=== PATIENT | female | born 1960 | race Caucasian/White ===

== ENCOUNTER 2023-05-05 17:10 | Inpatient (IN) | payer MEDICARE ==
--- NOTE | 2023-05-05 17:43 | ED ---
Psych HPI - General Chief Complaint: Psychiatric Symptoms Stated Complaint: Anxiety Time Seen by Provider: 05/05/23 17:23 Source: patient, RN notes reviewed Mode of arrival: ambulatory - History of Present Illness Initial Comments: Patient is a 62-year-old female presented ER with chief complaint of anxiety and depression. Patient states that she has been having increased anxiety and depression and she feels like she cannot concentrate anymore. She is on multiple depression medication. She states she thinks they need adjustments and she feels like "inside of box looking out". Patient does report self harm by picking at her skin. Denies chest pain, shortness of breath, fevers, chills. She denies any hallucinations, suicidal ideation or homicidal ideation. - Related Data Home Medications Medication Instructions Recorded Confirmed ALPRAZolam [Xanax] 0.5 mg PO DAILY 05/05/23 05/05/23 ALPRAZolam [Xanax] 2 mg PO HS 05/05/23 05/05/23 Calcium Citrate/Vitamin D3 1 tab PO HS 05/05/23 05/05/23 [Citracal + D Maximum Caplet] Dextroamphetamine/Amphetamine 20 mg PO BID 05/05/23 05/05/23 [Adderall] Ipratropium-Albuterol Nebulize 3 ml INHALATION RT-Q6H PRN 05/05/23 05/05/23 [Duoneb 0.5 mg-3 mg/3 ml Soln] Levocetirizine Dihydrochloride 5 mg PO HS 05/05/23 05/05/23 [Xyzal] Levothyroxine Sodium [Synthroid] 100 mcg PO DAILY 05/05/23 05/05/23 Montelukast [Singulair] 10 mg PO HS 05/05/23 05/05/23 Multivitamins, Thera [Multivitamin 1 tab PO HS 05/05/23 05/05/23 (formulary)] Omeprazole [PriLOSEC] 40 mg PO HS 05/05/23 05/05/23 SUMAtriptan succinate [Imitrex] 50 mg PO BID PRN 05/05/23 05/05/23 Vitamin B Complex 1 cap PO HS 05/05/23 05/05/23 buPROPion XL [Wellbutrin XL] 300 mg PO DAILY 05/05/23 05/05/23 fluvoxaMINE MALEATE [Luvox] 200 mg PO HS 05/05/23 05/05/23 lamoTRIgine [LaMICtal] 200 mg PO HS 05/05/23 05/05/23 rOPINIRole HCL [Requip] 1 mg PO HS 05/05/23 05/05/23 Allergies Allergy/AdvReac Type Severity Reaction Status Date / Time latex Allergy Rash/Hives Verified 05/05/23 17:18 Penicillins Allergy Rash/Hives Verified 05/05/23 17:18 Review of Systems ROS Statement: Those systems with pertinent positive or pertinent negative responses have been documented in the HPI. ROS Other: All systems not noted in ROS Statement are negative. Past Medical History Past Medical History: Asthma, Cancer, COPD, GERD/Reflux, Hyperlipidemia, Thyroid Disorder Additional Past Medical History / Comment(s): thyroid ca Additional Past Surgical History / Comment(s): thyroidectomy Past Psychological History: Anxiety, Depression, Panic Disorder Smoking Status: Current every day smoker General Exam Limitations: no limitations General appearance: alert, in no apparent distress Head exam: Present: atraumatic, normocephalic, normal inspection Respiratory exam: Present: normal lung sounds bilaterally. Absent: respiratory distress, wheezes, rales, rhonchi, stridor Cardiovascular Exam: Present: regular rate, normal rhythm, normal heart sounds. Absent: systolic murmur, diastolic murmur, rubs, gallop, clicks Neurological exam: Present: alert, oriented X3, CN II-XII intact Psychiatric exam: Present: normal affect, normal mood, anxious Skin exam: Present: other (Multiple scars and excoriations on bilateral legs, face and upper extremities.) Course Vital Signs 05/05/23 17:14 Temperature 97 F L Pulse Rate 68 Respiratory 16 Rate Blood Pressure 117/80 O2 Sat by Pulse 98 Oximetry Medical Decision Making - Medical Decision Making Was pt. sent in by a medical professional or institution (, PA, TALENT ACQUISITION MANAGER, urgent c are, hospital, or skilled nursing...) When possible be specific @ -No Did you speak to anyone other than the patient for history (EMS, parent, family, police, friend...)? What history was obtained from this source @ -No Did you review nursing and triage notes (agree or disagree)? Why? @ -I reviewed and agree with nursing and triage notes Were old charts reviewed (outside hosp., previous admission, EMS record, old EKG, old radiological studies, urgent care reports/EKG's, skilled nursing records)? Report findings @ -No old charts were reviewed Differential Diagnosis (chest pain, altered mental status, abdominal pain women, abdominal pain men, vaginal bleeding, weakness, fever, dyspnea, syncope, headache, dizziness, GI bleed, back pain, seizure, CVA, palpatations, mental health, musculoskeletal)? @ -Differential Mental Health: Depression, anxiety, bipolar, psychosis, schizophrenia, borderline personality, situational depression, adjustment disorder, behavioral disorder, brain tumor, malingering, substance abuse, ence phalopathy, medication reaction, dementia, hypothyroidism, degenerative neurologic disorder, lupus.... This is not meant to be all-inclusive list EKG interpreted by me (3pts min.). @ -None X-rays interpreted by me (1pt min.). @ -None done CT interpreted by me (1pt min.). @ -None done U/S interpreted by me (1pt. min.). @ -None done What testing was considered but not performed or refused? (CT, X-rays, U/S, labs)? Why? @ -None What meds were considered but not given or refused? Why? @ -None Did you discuss the management of the patient with other professionals (professionals i.e. , PA, TALENT ACQUISITION MANAGER, lab, RT, psych nurse, nephrology social worker, hypertrichologist, teacher, human resource officer, corrections caseworker)? Give summary @ -Yes, I discussed this case with Geovanna MON[place]NA from [facility] who advised on admission. Was smoking cessation discussed for >3mins.? @ -No Was critical care preformed (if so, how long)? @ -No Were there social determinants of health that impacted care today? How? (Homelessness, low income, unemployed, alcoholism, drug addiction, transportation, low edu. Level, literacy, decrease access to med. care, detention, rehab)? @ -No Was there de-escalation of care discussed even if they declined (Discuss DNR or withdrawal of care, Hospice)? DNR status @ -No What co-morbidities impacted this encounter? (DM, HTN, Smoking, COPD, CAD, Cancer, CVA, ARF, Chemo, Hep., AIDS, mental health diagnosis, sleep apnea, morbid obesity)? @ -Anxiety and depression, thyroid disorder Was patient admitted / discharged? Hospital course, mention meds given and route, prescriptions, significant lab abnormalities, going to OR and other pertinent info. @ -Admitted. Patient is a 62-year-old female presented ER with chief complaint of anxiety. Vitals stable. Patient was medically cleared to speak with EPS. Geovanna from [facility] spoke with patient and advised on admission for further treatment and care. COVID negative. Patient will be admitted in stable condition for further care. Patient agreement with care plan. Undiagnosed new problem with uncertain prognosis? @ -No Drug Therapy requiring intensive monitoring for toxicity (Heparin, Nitro, Insulin, Cardizem)? @ -No Were any procedures done? @ -No Diagnosis/symptom? @ -Anxiety/depression Acute, or Chronic, or Acute on Chronic? @ -Acute on Chronic Uncomplicated (without systemic symptoms) or Complicated (systemic symptoms)? @ -uncomplicated Side effects of treatment? @ -No Exacerbation, Progression, or Severe Exacerbation? @ -No Poses a threat to life or bodily function? How? (Chest pain, [place], NE, pneumonia, PE, COPD, DKA, ARF, appy, cholecystitis, CVA, Diverticulitis, Homicidal, Suicidal, threat to staff... and all critical care pts) @ -No - Lab Data Lab Results 05/05/23 Range/Units 20:20 Coronavirus (PCR) Not Detected (Not Detectd) Disposition Clinical Impression: Depression, Anxiety Disposition: ADMITTED IP TO THIS [facility] Condition: Stable Is patient prescribed a controlled substance at d/c from ED?: No Referrals: Nonstaff,Physician [Primary Care Provider] - 1-2 days Time of Disposition: 19:56
[2023-05-05] MEDS ORDERED: MAG HYDROX/AL HYDROX/SIMETH 30 ML CUP PO PRN (21:52)
[2023-05-05] MEDS ORDERED: MAGNESIUM HYDROXIDE 2,400 MG/30 ML CUP PO PRN (21:52)
[2023-05-05] MEDS ORDERED: haloperidoL 5 MG TAB PO PRN (21:56)
[2023-05-05] MEDS ORDERED: LORazepam 2 MG/ML INJ IM PRN (21:56)
[2023-05-05] MEDS ORDERED: HALOPERIDOL LACTATE 5 MG/ML 1 ML VIAL IM SCH (22:00)
[2023-05-05] MEDS ORDERED: HALOPERIDOL LACTATE 5 MG/ML 1 ML VIAL IM PRN (22:19)
[2023-05-05] MEDS: LORazepam 1 MG TAB PO PRN (22:51)
[2023-05-05] MEDS: ACETAMINOPHEN TAB 325 MG TAB PO PRN (23:19)
[2023-05-06] MEDS ORDERED: ALBUTEROL INHALER 60 PUFF/8 GM INHALER (MHU) INHALATION PRN
[2023-05-06] MEDS: NICOTINE 14MG/24HR PATCH TRANSDERM SCH (08:54)
[2023-05-06] MEDS: MULTIVITAMINS, THERA 1 EACH TAB PO SCH ×2 (08:54→20:06)
[2023-05-06] MEDS: LEVOTHYROXINE 75 MCG TAB PO SCH (08:54)
[2023-05-06] MEDS: ACETAMINOPHEN TAB 325 MG TAB PO PRN ×2 (08:55→14:06)
[2023-05-06] MEDS: LORazepam 1 MG TAB PO PRN (08:55)
[2023-05-06] MEDS ORDERED: FLUTICASONE 50MCG/SPRAY NASAL 16GM EA NOSTRIL PRN (09:00)
[2023-05-06 10:23] LABS: Basophils # (A) 0.1 k/uL (0-0.2); Basophils % (A) 1 %; Eosinophils # (A) 0.2 k/uL (0-0.7); Eosinophils % (A) 2 %; HCT 36.8 % (34.0-46.0); Hypochromasia Moderate; Lymphocytes % (A) 17 %; MCH 28.4 pg (25.0-35.0); MCHC 32.6 g/dL (31.0-37.0); MCV 86.9 fL (80.0-100.0); Mean Platelet Volume 8.3; Monocytes # (A) 0.4 k/uL (0-1.0); Monocytes % (A) 6 %; Neutrophils # (A) 4.3 k/uL (1.3-7.7); Neutrophils % (A) 71 %; Platelet Count 242 k/uL (150-450); RBC 4.24 m/uL (3.80-5.40); RDW 15.6 % (11.5-15.5)
[2023-05-06 10:36] LABS: ALT 27 U/L (4-34); AST 28 U/L (14-36); African American GFR (CKD) 84 (>60 ml/min/1.73 sqM); Albumin 3.3 g/dL (3.5-5.0); Alkaline Phosphatase 132 U/L (38-126); Anion Gap 6 mmol/L; Blood Urea Nitrogen 15 mg/dL (7-17); Calcium 7.8 mg/dL (8.4-10.2); Carbon Dioxide 25 mmol/L (22-30); Chloride 111 mmol/L (98-107); Glucose 110 mg/dL (74-99); Non-African American GFR(CKD) 73 (>60 ml/min/1.73 sqM); Potassium 4.5 mmol/L (3.5-5.1); Sodium 142 mmol/L (137-145); Total Bilirubin 0.4 mg/dL (0.2-1.3); Total Protein 5.7 g/dL (6.3-8.2)
[2023-05-06 13:02] VITALS: BMI 23.3
[2023-05-06] MEDS: SERTRALINE 50 MG TAB PO SCH (14:05)
[2023-05-06] MEDS: clonazePAM 0.5 MG TAB PO SCH ×2 (14:06→20:05)
--- NOTE | 2023-05-06 14:28 | P.HP ---
Psychiatric H&P - . H&P Date: 05/06/23 History & Physical: Allergies Allergy/AdvReac Type Severity Reaction Status Date / Time latex Allergy Rash/Hives Verified 05/05/23 17:18 Penicillins Allergy Rash/Hives Verified 05/05/23 17:18 Vital Signs Temp 97.6 F 05/05/23 23:01 Pulse 85 05/05/23 23:01 Resp 18 05/05/23 23:01 BP 120/79 05/05/23 23:01 Pulse Ox 98 05/05/23 17:14 FiO2 Intake & Output 05/05/23 05/06/23 05/06/23 18:59 06:59 18:59 Weight 56.699 kg 56.019 kg 56.019 kg Laboratory Last Values WBC 6.0 k/uL (3.8-10.6) 05/06/23 09:40 RBC 4.24 m/uL (3.80-5.40) 05/06/23 09:40 Hgb 12.0 gm/dL (11.4-16.0) 05/06/23 09:40 Hct 36.8 % (34.0-46.0) 05/06/23 09:40 MCV 86.9 fL (80.0-100.0) 05/06/23 09:40 MCH 28.4 pg (25.0-35.0) 05/06/23 09:40 MCHC 32.6 g/dL (31.0-37.0) 05/06/23 09:40 RDW 15.6 % (11.5-15.5) H 05/06/23 09:40 Plt Count 242 k/uL (150-450) 05/06/23 09:40 MPV 8.3 05/06/23 09:40 Neutrophils % 71 % 05/06/23 09:40 Lymphocytes % 17 % 05/06/23 09:40 Monocytes % 6 % 05/06/23 09:40 Eosinophils % 2 % 05/06/23 09:40 Basophils % 1 % 05/06/23 09:40 Neutrophils # 4.3 k/uL (1.3-7.7) 05/06/23 09:40 Lymphocytes # 1.0 k/uL (1.0-4.8) 05/06/23 09:40 Monocytes # 0.4 k/uL (0-1.0) 05/06/23 09:40 Eosinophils # 0.2 k/uL (0-0.7) 05/06/23 09:40 Basophils # 0.1 k/uL (0-0.2) 05/06/23 09:40 Hypochromasia Moderate 05/06/23 09:40 Sodium 142 mmol/L (137-145) 05/06/23 09:40 Potassium 4.5 mmol/L (3.5-5.1) 05/06/23 09:40 Chloride 111 mmol/L (98-107) H 05/06/23 09:40 Carbon Dioxide 25 mmol/L (22-30) 05/06/23 09:40 Anion Gap 6 mmol/L 05/06/23 09:40 BUN 15 mg/dL (7-17) 05/06/23 09:40 Creatinine 0.87 mg/dL (0.52-1.04) 05/06/23 09:40 Est GFR (CKD-EPI)AfAm 84 (>60 ml/min/1.73 sqM) 05/06/23 09:40 Est GFR (CKD-EPI)NonAf 73 (>60 ml/min/1.73 sqM) 05/06/23 09:40 Glucose 110 mg/dL (74-99) H 05/06/23 09:40 Calcium 7.8 mg/dL (8.4-10.2) L 05/06/23 09:40 Total Bilirubin 0.4 mg/dL (0.2-1.3) 05/06/23 09:40 AST 28 U/L (14-36) 05/06/23 09:40 ALT 27 U/L (4-34) 05/06/23 09:40 Alkaline Phosphatase 132 U/L (38-126) H 05/06/23 09:40 Total Protein 5.7 g/dL (6.3-8.2) L 05/06/23 09:40 Albumin 3.3 g/dL (3.5-5.0) L 05/06/23 09:40 TSH 3.240 mIU/L (0.465-4.680) 05/06/23 09:40 Coronavirus (PCR) Not Detected (Not Detectd) 05/05/23 20:20 05/06/23 13:36 IDENTIFYING DATA: Patient is a 62-year-old female, currently lives alone in a trailer, she is single, she has no kids, she collects Social Security disability however also works part-time for an insurance company. HPI: Patient presented to the hospital yesterday morning of depression and anxiety and decreased concentration. Patient states that she needed an adjustment of her medications. She was also endorsing self harming and also picking at her skin. Patient was admitted voluntary to the mental health unit. She was agreeable retarded. She had a soft tone of voice, fairly directable. She states that she has been on psychiatric medications for over 40 years. She states that her medical doctor and also her psychiatric team are not on the scene page. Claims that she is not being helped with her medications. She states that she feels that she is "continuously sick" and states that she isn't having several health issues lately. States that she has been picking at her skin more, endorses it to be self-harm. States that she recently broke her arm. Claims that her anxiety is "through the roof" and states that she is fairly fearful of being on the unit and also endorsing depression and sadness. States that the depression is going on for about 2-3 years now. States that she is having poor sleep of about 2 hours a night, appetite and on and off. Claims t hat she is seeing things at home possibly however is not sure. Patient denies any current suicidal or homicidal ideations intent or plan. At this time patient denies any auditory or visual hallucinations. Patient denies any flight of ideas racing thoughts and increased in goal directed behavior. Patient admits to using cannabis regularly every 1-2 days. States that she smokes cigarettes. PAST PSYCHIATRIC HISTORY: Patient states that she has history of anxiety disorder and also depression. Patient is currently on several different psychiatric medications including Lamictal, Luvox, Xanax and Adderall, Wellbutrin. She states that she was psychiatrically admitted several years ago in [place]. Claims that she currently follows up with a physician's child care assistant at [facility]. Patient denies any history of suicide attempts in the past. Past Medical History: Asthma, Cancer, COPD, GERD/Reflux, Hyperlipidemia, Thyroid Disorder Additional Past Medical History / Comment(s): thyroid ca Additional Past Surgical History / Comment(s): thyroidectomy Past Psychological History: Anxiety, Depression, Panic Disorder Smoking Status: Current every day smoker ALLERGIES: as per EMR CHEMICAL DEPENDENCY HISTORY: as per HPI FAMILY PSYCHIATRIC/SUBSTANCE USE HISTORY: Claims that her father committed suicide SOCIAL HISTORY: Patient was born and raised in [place] and then moved to [place]. States that she complete high school and college degree. States that she does not have any legal history. She is single, lives alone in a trailer. She has no kids. Collects Social Security disability and also works part-time. MENTAL STATUS EXAM: General Appearance: Patient appears to be thin, short hair, dyed purple, stated age is alert, directable, and attempts to cooperate. Patient appears to have poor hygiene and grooming. Behavior: Patient is seated without any agitated behavior. Attempts to cooperate Speech: Patient's speech is fluent and nonpressured. Mood/Affect: Patient reports their mood is depressed and anxious, affect is congruent and constricted. Suicidality/Homicidality: Patient denies having any homicidal ideation intent or plan. Denies any suicidal ideations intent or plan Perceptions: Patient denies any visual hallucinations and denies any auditory hallucinations Though content/process: There is no evidence of any delusional thought content and thought process is linear and goal-directed. Focused on her symptoms Memory and concentration: AOX3, grossly intact for the purposes of this session. Can spell "WORLD" backwards Judgment and insight: Fair STRENGTHS/WEAKNESSES: strength is that patient is resilient. Weakness is that patient has poor judgment and is impulsive INTELLECT: average IMPRESSIONS: Major depressive disorder, without psychotic features Anxiety disorder unspecified, rule out PTSD versus generalized anxiety disorder cannabis use disorder Nicotine dependence PLAN: -Patient is admitted under voluntary status to MHU for stabilization of ps ychiatric symptoms and safety. Patient has signed adult voluntary form and medication consent and is placed in patient's chart. -Medications : Zoloft 50 mg daily for mood/anxiety, Remeron 15 mg daily at bedtime for mood/insomnia, continue with Lamictal 200 mg daily at bedtime for mood stabilization, discontinue Xanax and replace with Klonopin 0.5 mg twice a day for anxiety with plan to possibly taper down the patient tolerates it well. Hold off on Wellbutrin and stimulants -Ativan and Haldol PRN for agitation/aggression -Patient was counselled on substance abuse and desired to cut back on use -Patient was informed of the risks, benefits and side effects of the medication and patient verbally consented to taking the medications. Patient signed med consent form and was placed in chart. -Internal Medicine consult to perform medical evaluation and physical. -NRT - nicotine patch -SW on board for discharge planning. Encourage patient to participate in groups to work on coping skills. 05/06/23 14:21
[2023-05-06] MEDS: lamoTRIgine 100 MG TAB PO SCH (20:04)
[2023-05-06] MEDS: CALCIUM CARB-VIT D 500 MG-5 MCG TAB PO SCH (20:04)
[2023-05-06] MEDS: PANTOPRAZOLE 40 MG TABLET PO SCH (20:05)
[2023-05-06] MEDS: MONTELUKAST 10 MG TAB PO SCH (20:05)
[2023-05-06] MEDS: LORATADINE 10 MG TAB PO SCH (20:05)
[2023-05-06] MEDS ORDERED: MIRTAZAPINE 15 MG TAB PO SCH (21:00)
[2023-05-07] MEDS: NICOTINE 14MG/24HR PATCH TRANSDERM SCH (08:11)
[2023-05-07] MEDS: MULTIVITAMINS, THERA 1 EACH TAB PO SCH ×2 (08:11→20:38)
[2023-05-07] MEDS: clonazePAM 0.5 MG TAB PO SCH ×2 (08:11→20:38)
[2023-05-07] MEDS: SERTRALINE 50 MG TAB PO SCH (08:11)
[2023-05-07] MEDS: LEVOTHYROXINE 75 MCG TAB PO SCH (08:12)
[2023-05-07] MEDS: ACETAMINOPHEN TAB 325 MG TAB PO PRN ×3 (08:13→20:39)
--- NOTE | 2023-05-07 12:55 | P.PN ---
Progress Note - Text Progress Note Date: 05/07/23 Interval history: Patient was seen today for psychiatric follow-up. Patient was agreeable to sp parkk to sports book writer in the office. She appears to be in a brighter spirits today. She states on her mood and anxiety have been improving since yesterday. States that the Klonopin has been helping. She claims that she has been participating in group more. Feels less urge to pick at her skin today. She states that she had difficulty sleeping last night and was tossing and turning. States that her appetite is fair. At this time she is denying any suicidal homicidal ideations intent or plan. Denying any auditory or visual hallucinations. She has been taking her medications as prescribed. MENTAL STATUS EXAM: General Appearance: Patient appears to be thin, short hair, dyed purple, stated age is alert, directable, and attempts to cooperate. Patient appears to have improving hygiene and grooming. Behavior: Patient is seated without any agitated behavior. Attempts to cooperate Speech: Patient's speech is fluent and nonpressured. Mood/Affect: Patient reports their mood is depressed and anxious, improving, affect is congruent Suicidality/Homicidality: Patient denies having any homicidal ideation intent or plan. Denies any suicidal ideations intent or plan Perceptions: Patient denies any visual hallucinations and denies any auditory hallucinations Though content/process: There is no evidence of any delusional thought content and thought process is linear and goal-directed. less Focused on her symptoms Memory and concentration: AOX3, grossly intact for the purposes of this session Judgment and insight: Fair IMPRESSIONS: Major depressive disorder, without psychotic features Anxiety disorder unspecified, rule out PTSD versus generalized anxiety disorder cannabis use disorder Nicotine dependence PLAN: -Patient is admitted under voluntary status to MHU for stabilization of psychiatric symptoms and safety. Patient has signed adult voluntary form and medication consent and is placed in patient's chart. -Medications : Zoloft 50 mg daily for mood/anxiety, increase Remeron 30 mg daily at bedtime for mood/insomnia, added melatonin 6 mg qhs for sleep. continue with Lamictal 200 mg daily at bedtime for mood stabilization, continue with Klonopin 0.5 mg twice a day for anxiety with plan to possibly taper down the patient tolerates it well. Hold off on Wellbutrin and stimulants. -Ativan and Haldol PRN for agitation/aggression -NRT - nicotine patch -SW on board for discharge planning. Encourage patient to participate in groups to work on coping skills. likely discharge on if patient is improving.
[2023-05-07] MEDS: IBUPROFEN 600 MG TAB PO PRN (19:45)
[2023-05-07] MEDS: MONTELUKAST 10 MG TAB PO SCH (20:38)
[2023-05-07] MEDS: CALCIUM CARB-VIT D 500 MG-5 MCG TAB PO SCH (20:39)
[2023-05-07] MEDS: LORATADINE 10 MG TAB PO SCH (20:39)
[2023-05-07] MEDS: lamoTRIgine 100 MG TAB PO SCH (20:39)
[2023-05-07] MEDS: PANTOPRAZOLE 40 MG TABLET PO SCH (20:49)
[2023-05-07] MEDS ORDERED: MIRTAZAPINE 15 MG TAB PO SCH (21:00)
[2023-05-07] MEDS ORDERED: MELATONIN 3 MG TABLET PO SCH (21:00)
--- NOTE | 2023-05-08 05:16 | P.MDCNMH ---
History of Present Illness H&P Date: 05/07/23 Past Medical History Past Medical History: Asthma, Cancer, COPD, GERD/Reflux, Hyperlipidemia, Thyroid Disorder Additional Past Medical History / Comment(s): thyroid ca History of Any Multi-Drug Resistant Organisms: None Reported Additional Past Surgical History / Comment(s): thyroidectomy Past Anesthesia/Blood Transfusion Reactions: No Reported Reaction Past Psychological History: Anxiety, Depression, Panic Disorder Smoking Status: Current every day smoker Past Alcohol Use History: None Reported Past Drug Use History: Marijuana - Past Family History Father Family Medical History: Unable to Obtain Mother Family Medical History: Unable to Obtain Medications and Allergies Home Medications Medication Instructions Recorded Confirmed Type ALPRAZolam [Xanax] 0.5 mg PO DAILY 05/05/23 05/05/23 History ALPRAZolam [Xanax] 2 mg PO HS 05/05/23 05/05/23 History Calcium Citrate/Vitamin D3 1 tab PO HS 05/05/23 05/05/23 History [Citracal + D Maximum Caplet] Dextroamphetamine/Amphetamine 20 mg PO BID 05/05/23 05/05/23 History [Adderall] Ipratropium-Albuterol Nebulize 3 ml INHALATION RT-Q6H PRN 05/05/23 05/05/23 History [Duoneb 0.5 mg-3 mg/3 ml Soln] Levocetirizine Dihydrochloride 5 mg PO HS 05/05/23 05/05/23 History [Xyzal] Levothyroxine Sodium [Synthroid] 100 mcg PO DAILY 05/05/23 05/05/23 History Montelukast [Singulair] 10 mg PO HS 05/05/23 05/05/23 History Multivitamins, Thera [Multivitamin 1 tab PO HS 05/05/23 05/05/23 History (formulary)] Omeprazole [PriLOSEC] 40 mg PO HS 05/05/23 05/05/23 History SUMAtriptan succinate [Imitrex] 50 mg PO BID PRN 05/05/23 05/05/23 History Vitamin B Complex 1 cap PO HS 05/05/23 05/05/23 History buPROPion XL [Wellbutrin XL] 300 mg PO DAILY 05/05/23 05/05/23 History fluvoxaMINE MALEATE [Luvox] 200 mg PO HS 05/05/23 05/05/23 History lamoTRIgine [LaMICtal] 200 mg PO HS 05/05/23 05/05/23 History rOPINIRole HCL [Requip] 1 mg PO HS 05/05/23 05/05/23 History Allergies Allergy/AdvReac Type Severity Reaction Status Date / Time latex Allergy Rash/Hives Verified 05/05/23 17:18 Penicillins Allergy Rash/Hives Verified 05/05/23 17:18 Results CBC & Chem 7: 05/06/23 09:40 05/06/23 09:40
[2023-05-08 07:22] VITALS: BP 125/74; PULSE 76; RESP 16; TEMP 97.4
[2023-05-08] MEDS: SERTRALINE 50 MG TAB PO SCH (08:38)
[2023-05-08] MEDS: clonazePAM 0.5 MG TAB PO SCH (08:38)
[2023-05-08] MEDS: LEVOTHYROXINE 75 MCG TAB PO SCH (08:38)
[2023-05-08] MEDS: NICOTINE 14MG/24HR PATCH TRANSDERM SCH (08:47)
[2023-05-08] MEDS: IBUPROFEN 600 MG TAB PO PRN (09:13)
--- NOTE | 2023-05-08 11:16 | P.DS ---
Providers Date of admission: 05/05/23 21:38 Expected date of discharge: 05/08/23 Attending physician: Alirio Harper MD Consults: 05/05/23 21:52 Consult Physician Routine Consulting Provider: [facility] Consult Reason/Comments: H&P Do you want consulting provider notified?: Yes Primary care physician: Physician Nonstaff - Discharge Diagnosis(es) (1) Major depressive disorder without psychotic features Current Visit: Yes Status: Acute Priority: High (2) Anxiety disorder Current Visit: Yes Status: Acute Priority: High (3) Cannabis use disorder Current Visit: Yes Status: Acute Priority: Medium (4) Nicotine dependence Current Visit: Yes Status: Acute Priority: Low Hospital Course: Admission HPI: Admission note was completed by mortgage loan underwriter "patient is a 62-year-old female, currently lives alone in a trailer, she is single, she has no kids, she collects Social Security disability however also works part-time for an insurance company. Patient presented to the hospital yesterday morning of depression and anxiety and decreased concentration. Patient states that she needed an adjustment of her medications. She was also endorsing self harming and also picking at her skin. Patient was admitted voluntary to the mental health unit. She was agreeable retarded. She had a soft tone of voice, fairly directable. She states that she has been on psychiatric medications for over 40 years. She states that her medical doctor and also her psychiatric team are not on the scene page. Claims that she is not being helped with her medications. She states that she feels that she is "continuously sick" and states that she isn't having several health issues lately. States that she has been picking at her skin more, endorses it to be self-harm. States that she recently broke her arm. Claims that her anxiety is "through the roof" and states that she is fairly fearful of being on the unit and also endorsing depression and sadness. States that the depression is going on for about 2-3 years now. States that she is having poor sleep of about 2 hours a night, appetite and on and off. Claims that she is seeing things at home possibly however is not sure. Patient denies any current suicidal or homicidal ideations intent or plan. At this time patient denies any auditory or visual hallucinations. Patient denies any flight of ideas racing thoughts and increased in goal directed behavior. Patient admits to using cannabis regularly every 1-2 days. States that she smokes cigarettes." Hospital course: Upon admission to the unit patient was directable and agreeable to commence treatment and signed adult voluntary form. patient got along well with other patients on the unit and followed unit protocol. Patient was compliant with the medications and denied any side effects throughout hospital course. Patient was started on Zoloft 50 mg daily for mood/anxiety, Xanax and Wellbutrin, Luvox and patient's Adderall were all discontinued. Patient was replaced on a longer acting lower dose of benzodiazepine Klonopin 0.5 mg twice daily for anxiety. Patient was also started on Remeron 30 mg nightly for mood/insomnia, melatonin 6 mg nightly for sleep, Requip 1 mg nightly for restless leg symptoms, Lamictal was continued at her home dose of 200 mg nightly for mood stabilization. patient spoke of her stressors and engaged in therapy both group and individual. Patient was also seen by medical team for history and physical exam. Throughout the course of the hospitalization patient gradually improved with regards to mood, anxiety, skin picking, suicidal thoughts, sleep and became more future oriented with improved insight and judgment. On the day of discharge patient denied any suicidal or homicidal ideations intent or plan denied any auditory or visual hallucinations. Patient endorsed wanting to live for her health and her future. The patient denied any access to guns or weapons. Patient denied any paranoia and did not endorse any delusions. Patient does have a significant history of substance abuse and was counseled on abstaining from all substances including alcohol and marijuana. Patient elected to do outpatient substance use treatment program through their outpatient provider.. Patient was also counseled on the medications and need for regular compliance and was encouraged to follow- up with their outpatient appointment for mental health and also for primary care. Prior to discharge a family meeting will be arranged by director of social work to answer any questions and ensure safety upon discharge incuding making sure that guns/weapons are either removed from the home or locked away. Mental status exam: General Appearance: Patient appears to be thin, has short hair, dyed hair, stated age is alert, pleasant, and cooperative. Patient is in no acute distress and has improved hygiene and grooming Behavior: Patient is calmly seated without any agitated behavior. Speech: Patient's speech is fluent and nonpressured. Mood/Affect: Patient reports their mood is "better", affect is congruent and euthymic. Suicidality/Homicidality: Patient denies having any suicidal or homicidal ideation intent or plan. Perceptions: Patient denies any auditory or visual hallucinations. Though content/process: There is no evidence of any delusional thought content and thought process is linear and goal-directed. More future oriented Memory and concentration: AOX3, grossly intact for the purposes of this session. Can spell "WORLD" backwards correctly. Judgment and insight: improved with guarded prognosis Impression: Major depressive disorder without psychotic features Anxiety disorder unspecified Cannabis use disorder Nicotine dependence Plan: -Continue with discharge today as patient has improved and stabilized psych iatrically and is not currently an imminent threat to themself and/or others. -Continue medications: Zoloft 50 mg daily for mood/anxiety, Remeron 30 mg nightly for mood/insomnia, melatonin 6 mg nightly for sleep, Lamictal 200 mg nightly for mood stabilization, Klonopin 0.5 mg twice daily as needed for anxiety, will be prescribed a 10-day supply of this. Discontinued Wellbutrin, Luvox, Adderall and Xanax. -Patient was counseled on the need for medication compliance and appropriate follow-up at mental health and also primary care for medical issues. Patient verbalized understanding and agreed. -Social work to arrange for and conduct family meeting to ensure safety upon discharge and answer any questions/concerns and also to ensure safe home environment that guns/weapons are either removed from the home or locked away. Social work also to arrange for patients follow up appointments with [facility] for psychiatric care along with follow up with primary care provider. -Patient counseled on abstaining from recreational drugs and marijuana and alcohol. Was informed/educated on the adverse effects on their physical and mental health. Patient verbally agreed and understood. -Patient was instructed to return to the hospital or seek immediate medical care if their psychiatric or medical symptoms do worsen or reoccur. Allergies Allergy/AdvReac Type Severity Reaction Status Date / Time latex Allergy Rash/Hives Verified 05/05/23 17:18 Penicillins Allergy Rash/Hives Verified 05/05/23 17:18 Laboratory Results WBC 6.0 k/uL (3.8-10.6) 05/06/23 09:40 RBC 4.24 m/uL (3.80-5.40) 05/06/23 09:40 Hgb 12.0 gm/dL (11.4-16.0) 05/06/23 09:40 Hct 36.8 % (34.0-46.0) 05/06/23 09:40 MCV 86.9 fL (80.0-100.0) 05/06/23 09:40 MCH 28.4 pg (25.0-35.0) 05/06/23 09:40 MCHC 32.6 g/dL (31.0-37.0) 05/06/23 09:40 RDW 15.6 % (11.5-15.5) H 05/06/23 09:40 Plt Count 242 k/uL (150-450) 05/06/23 09:40 MPV 8.3 05/06/23 09:40 Neutrophils % 71 % 05/06/23 09:40 Lymphocytes % 17 % 05/06/23 09:40 Monocytes % 6 % 05/06/23 09:40 Eosinophils % 2 % 05/06/23 09:40 Basophils % 1 % 05/06/23 09:40 Neutrophils # 4.3 k/uL (1.3-7.7) 05/06/23 09:40 Lymphocytes # 1.0 k/uL (1.0-4.8) 05/06/23 09:40 Monocytes # 0.4 k/uL (0-1.0) 05/06/23 09:40 Eosinophils # 0.2 k/uL (0-0.7) 05/06/23 09:40 Basophils # 0.1 k/uL (0-0.2) 05/06/23 09:40 Hypochromasia Moderate 05/06/23 09:40 Sodium 142 mmol/L (137-145) 05/06/23 09:40 Potassium 4.5 mmol/L (3.5-5.1) 05/06/23 09:40 Chloride 111 mmol/L (98-107) H 05/06/23 09:40 Carbon Dioxide 25 mmol/L (22-30) 05/06/23 09:40 Anion Gap 6 mmol/L 05/06/23 09:40 BUN 15 mg/dL (7-17) 05/06/23 09:40 Creatinine 0.87 mg/dL (0.52-1.04) 05/06/23 09:40 Est GFR (CKD-EPI)AfAm 84 (>60 ml/min/1.73 sqM) 05/06/23 09:40 Est GFR (CKD-EPI)NonAf 73 (>60 ml/min/1.73 sqM) 05/06/23 09:40 Glucose 110 mg/dL (74-99) H 05/06/23 09:[address] Glu mg/dL 100 mg/dL 05/06/23 09:40 Hemoglobin A1c 5.1 % (<=6.0) 05/06/23 09:40 Calcium 7.8 mg/dL (8.4-10.2) L 05/06/23 09:40 Total Bilirubin 0.4 mg/dL (0.2-1.3) 05/06/23 09:40 AST 28 U/L (14-36) 05/06/23 09:40 ALT 27 U/L (4-34) 05/06/23 09:40 Alkaline Phosphatase 132 U/L (38-126) H 05/06/23 09:40 Total Protein 5.7 g/dL (6.3-8.2) L 05/06/23 09:40 Albumin 3.3 g/dL (3.5-5.0) L 05/06/23 09:40 TSH 3.240 mIU/L (0.465-4.680) 05/06/23 09:40 Lamotrigine 2.4 ug/mL (2.0-15.0) 05/06/23 09:40 Coronavirus (PCR) Not Detected (Not Detectd) 05/05/23 20:20 Vital Signs Temp 97.4 F L 05/08/23 06:48 Pulse 76 05/08/23 06:48 Resp 16 05/08/23 06:48 BP 125/74 05/08/23 06:48 Pulse Ox 98 05/05/23 17:14 FiO2 Patient Condition at Discharge: Stable Plan - Discharge Summary Discharge Rx Participant: Yes New Discharge Prescriptions: New Fluticasone Nasal [place] [Flonase Nasal [place]] 2 spray EA NOSTRIL DAILY PRN ml PRN Reason: Allergy Symptoms Nicotine 14Mg/24Hr Patch [Habitrol] 1 patch TRANSDERM DAILY 14 Days #14 patch clonazePAM [KlonoPIN] 0.5 mg PO BID PRN 10 Days #20 tab PRN Reason: Anxiety Mirtazapine [Remeron] 30 mg PO HS 30 Days #60 tab Melatonin 6 mg PO HS 30 Days #60 tab Ibuprofen [Motrin] 600 mg PO Q6HR PRN tab PRN Reason: Moderate Pain (Scale 4 To 6) Sertraline [Zoloft] 50 mg PO DAILY 30 Days #30 tab Continue Levothyroxine Sodium [Synthroid] 100 mcg PO DAILY Vitamin B Complex 1 cap PO HS Multivitamins, Thera [Multivitamin (formulary)] 1 tab PO HS lamoTRIgine [LaMICtal] 200 mg PO HS 30 Days #30 tab rOPINIRole HCL [Requip] 1 mg PO HS 30 Days #60 tab Omeprazole [PriLOSEC] 40 mg PO HS SUMAtriptan succinate [Imitrex] 50 mg PO BID PRN PRN Reason: Migraine Headache Montelukast [Singulair] 10 mg PO HS Levocetirizine Dihydrochloride [Xyzal] 5 mg PO HS Calcium Citrate/Vitamin D3 [Citracal + D Maximum [place]] 1 tab PO HS Ipratropium-Albuterol Nebulize [Duoneb 0.5 mg-3 mg/3 ml Soln] 3 ml INHALATION RT-Q6H PRN PRN Reason: Shortness Of Breath Discontinued fluvoxaMINE MALEATE [Luvox] 200 mg PO HS ALPRAZolam [Xanax] 0.5 mg PO DAILY buPROPion XL [Wellbutrin XL] 300 mg PO DAILY Dextroamphetamine/Amphetamine [Adderall] 20 mg PO BID ALPRAZolam [Xanax] 2 mg PO HS Discharge Medication List Calcium Citrate/Vitamin D3 [Citracal + D Maximum [place]] 1 tab PO HS 05/05/23 [History] Ipratropium-Albuterol Nebulize [Duoneb 0.5 mg-3 mg/3 ml Soln] 3 ml INHALATION RT-Q6H PRN 05/05/23 [History] Levocetirizine Dihydrochloride [Xyzal] 5 mg PO HS 05/05/23 [History] Levothyroxine Sodium [Synthroid] 100 mcg PO DAILY 05/05/23 [History] Montelukast [Singulair] 10 mg PO HS 05/05/23 [History] Multivitamins, Thera [Multivitamin (formulary)] 1 tab PO HS 05/05/23 [History] Omeprazole [PriLOSEC] 40 mg PO HS 05/05/23 [History] SUMAtriptan succinate [Imitrex] 50 mg PO BID PRN 05/05/23 [History] Vitamin B Complex 1 cap PO HS 05/05/23 [History] Fluticasone Nasal [place] [Flonase Nasal [place]] 2 spray EA NOSTRIL DAILY PRN ml 05/08/23 [Rx] Ibuprofen [Motrin] 600 mg PO Q6HR PRN tab 05/08/23 [Rx] Melatonin 6 mg PO HS 30 Days #60 tab 05/08/23 [Rx] Mirtazapine [Remeron] 30 mg PO HS 30 Days #60 tab 05/08/23 [Rx] Nicotine 14Mg/24Hr Patch [Habitrol] 1 patch TRANSDERM DAILY 14 Days #14 patch 05/08/23 [Rx] Sertraline [Zoloft] 50 mg PO DAILY 30 Days #30 tab 05/08/23 [Rx] clonazePAM [KlonoPIN] 0.5 mg PO BID PRN 10 Days #20 tab 05/08/23 [Rx] lamoTRIgine [LaMICtal] 200 mg PO HS 30 Days #30 tab 05/08/23 [Rx] rOPINIRole HCL [Requip] 1 mg PO HS 30 Days #60 tab 05/08/23 [Rx] Follow up Appointment(s)/Referral(s): Psychiatry, [facility] [Other] - 1 Week (Due to weather office closed on 05/07 will call on 05/08 for appt and reach out to client. ) Nonstaff,Physician [Primary Care Provider] - 1-2 days Activity/Diet/Wound Care/Special Instructions: Avoid the use of street drugs and alcohol. Take all medications as prescribed. When you are in need of refills on your medications, please contact your medical provider and/or outpatient psychiatrist/provider to have this done. Please go to your scheduled outpatient appointment for aftercare treatment. If symptoms return or become worse, call the crisis line at and/or go to the nearest emergency room for evaluation. National Suicide Hotline 988. Discharge Disposition: HOME SELF-CARE
== END 2023-05-08 13:55 | disposition home or self-care (01) | DRG 881 ==
LOC: EC 17:10 → 3MHU 21:38
PROVIDERS: ADMIT Psychiatry & Neurology Psychiatry; ATTEND Psychiatry & Neurology Psychiatry
DX: F32.9 Major depressive disorder, single episode, unspecified (principal); F41.9 Anxiety disorder, unspecified; F12.90 Cannabis use, unspecified, uncomplicated; E78.5 Hyperlipidemia, unspecified; E89.0 Postprocedural hypothyroidism; F17.210 Nicotine dependence, cigarettes, uncomplicated; F41.0 Panic disorder [episodic paroxysmal anxiety]; G25.81 Restless legs syndrome; G47.00 Insomnia, unspecified; Z79.890 Hormone replacement therapy; Z79.899 Other long term (current) drug therapy; Z85.850 Personal history of malignant neoplasm of thyroid; Z11.52 Encounter for screening for COVID-19
CPT/HCPCS: 80053; 80175; 82075; 83036; 84443; 85025; 87635; 99285